=== PATIENT | male | born 2000 | race Caucasian/White ===

== ENCOUNTER 2022-08-08 18:51 | Emergency (ER) | payer OTHER ==
[2022-08-08] MEDS ORDERED: Ketorolac Tromethamine 30 MG/ML VIAL ONE (20:30)
[2022-08-08] MEDS ORDERED: Cyclobenzaprine 10 MG TAB ONE (20:30)
== END 2022-08-08 21:22 | disposition home or self-care (01) ==
LOC: ERS 18:51
DX: S13.4XXA Sprain of ligaments of cervical spine, initial encounter (principal); X50.1XXA Overexertion from prolonged static or awkward postures, initial encounter
CPT/HCPCS: 72125; 96372; J1885